=== PATIENT | male | born 1935 | race Caucasian/White ===

== ENCOUNTER 2017-11-16 08:17 | Inpatient (IN) | payer MEDICARE ==
[~2017-11-16] VITALS: Ht 167.6 cm; Wt 81.6 kg
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
[2017-11-16] MEDS ORDERED: FENTANYL PF 100MCG/2ML AMPUL IV ONE (08:30)
[2017-11-16] MEDS ORDERED: FENTANYL PF 100MCG/2ML AMPUL ONE (08:34)
--- NOTE | 2017-11-16 08:40 | NUR ---
NEW IV STARTED ON RAC, 20 G. BLOOD DRAWN AND SENT TO LAB.
--- NOTE | 2017-11-16 08:45 | NUR ---
PATIENT MEDICATED PER MD ORDERS.
[2017-11-16 08:48] LABS: BASOPHILS % (AUTO) 0.7 % (0.0-2.0); EOSINOPHILS # (AUTO) 0.3 /CMM (0.0-0.7); HEMATOCRIT 34 % (39-51); HEMOGLOBIN 11.9 g/dL (13.5-17.5); LYMPHOCYTES # (AUTO) 1.5 /CMM (0.8-4.8); LYMPHOCYTES % (AUTO) 35.1 % (20.0-44.0); MEAN CORPUSCULAR HEMOGLOBIN 33 PG (26.0-33.0); MEAN CORPUSCULAR HGB CONC 35 g/dl (31.0-36.0); MEAN CORPUSCULAR VOLUME 94 fL (80-96); MONOCYTES # (AUTO) 0.4 /CMM (0.1-1.30); MONOCYTES % (AUTO) 9.6 % (2.0-12.0); NEUTROPHILS % (AUTO) 47.6 % (43.0-81.0); PLATELET COUNT (AUTO) 166 /CMM (150-450); RDW COEFFICIENT OF VARIATION 13.8 (11.5-15.0); RED BLOOD CELL COUNT(AUTO) 3.61 MIL/uL (4.5-6.0); WHITE BLOOD COUNT (AUTO) 4.3 K/uL (4.3-11.0)
[2017-11-16 09:04] LABS: ALANINE AMINOTRANSFERASE 22 U/L (12-78); ALBUMIN 3.6 g/dL (3.4-5.0); ALKALINE PHOSPHATASE 61 U/L (46-116); ASPARTATE AMINOTRANSFERASE 18 U/L (15-37); BILIRUBIN,DIRECT 0.1 mg/dL (0.0-0.2); BILIRUBIN,TOTAL 0.6 mg/dL (0.2-1.0); CALCIUM, SERUM 9.1 mg/dL (8.5-10.1); CARBON DIOXIDE 27 mmol/L (21-32); CHLORIDE 106 mmol/L (98-107); CREATININE 1.6 mg/dL (0.6-1.3); GLUCOSE 119 mg/dL (74-106); POTASSIUM 3.7 mmol/L (3.5-5.1); SODIUM SERUM 141 mmol/L (136-145); UREA NITROGEN, BLOOD 24 mg/dL (7-18)
[2017-11-16 09:10] LABS: INR 0.97 (0.87-1.13); PROTHROMBIN TIME 10.1 SECS (9.5-12.7)
--- NOTE | 2017-11-16 09:25 | NUR ---
DR CAESAR KRAUS SUPERVISOR DRYING AND WINDING [phone]
[2017-11-16] MEDS ORDERED: LOSA1TAB39 PO (09:55)
[2017-11-16] MEDS ORDERED: AMLO5TAB2 PO (09:55)
--- NOTE | 2017-11-16 11:05 | NUR ---
ORTHO SURGEON AT BEDSIDE FOR EVAL.
--- NOTE | 2017-11-16 11:40 | NUR ---
REPORT GIVEN TO TERA MUNIZ FOR SHERRY UPON ADMISSION.
--- NOTE | 2017-11-16 11:58 | NUR ---
PATIENT TRANSPORTED TO [facility] VIA STRETCHER WITH EMT AND RN FOR ADMISSION. RN, TERA TO PROVIDE SHERRY.
[2017-11-16] MEDS ORDERED: HYDROCODONE/APAP 5/325MG 1 EACH TABLET PO PRN (12:00)
[2017-11-16] MEDS ORDERED: Z GUARD REMEDY 2 OZ OINT TP PRN (12:00)
[2017-11-16] MEDS ORDERED: MAG HYDROX/AL HYDROX/SIMETH 30 ML UDC PO PRN (12:00)
[2017-11-16] MEDS ORDERED: ACETAMINOPHEN 325 MG TABLET PO PRN (12:00)
[2017-11-16] MEDS ORDERED: MAGNESIUM HYDROXIDE 30 ML UDC PO PRN (12:00)
[2017-11-16] MEDS ORDERED: ONDANSETRON HCL/PF 4 MG/2 ML VIAL IVP PRN (12:00)
[2017-11-16] MEDS ORDERED: IV NS 0.9% 1,000 ML IV PRN (12:00)
[2017-11-16] MEDS ORDERED: ZOLPIDEM TARTRATE 5 MG TABLET PO PRN (12:00)
--- NOTE | 2017-11-16 12:15 | NUR ---
RECEIVED PT FROM ER. NO SOB OR DISTRESS. PATIENT REPORTS TOLERABLE PAIN WHEN HE ISN'T MOVING. PT MOVED TO [employer]OF[employer] AIR MATTRESS AND PLACED IN A COMFORTABLE POSITION. PATIENT ORIENTED TO ROOM AND CALL LIGHT. VITALS CHECKED AND RECORDED. PICTURES OF SKIN NOT NEED THE SKIN IS INTACT. HISTORY OBTAINED FROM PT FOR ADMISSION. BED IN A LOW POSITION, CALL LIGHT WITHIN PATIENT REACH, FAMILY IS AT THE BEDSIDE. WILL CONTINUE TO MONITOR.
[2017-11-16] MEDS ORDERED: MORPHINE SULFATE INJ 4 MG/ML DISP.SYRIN IV PRN (12:30)
--- NOTE | 2017-11-16 14:49 | NUR ---
ATTEMPTED TO HELP PT CHANGE POSITION. PT IS REFUSING, STATES "IM OK RIGHT NOW." EXPLAINED TO THE PATIENT THAT FREQUENT TURNING AND REPOSITIONING IS IMPORTANT TO PREVENT BED SORES. PT STATES "I CAN MOVE MYSELF AROUND." AND LIFTED AND MOVED HIS BOTTOM SIDE TO SIDE. CONTINUED TO EXPLAIN TO THE PATIENT THAT TURNING FREQUENTLY NEEDED TO BE DONE, BUT PT STATES HE WILL TAKE CARE OF HIMSELF.
--- NOTE | 2017-11-16 19:34 | NUR ---
PT REFUSED HELP WITH TURNING THROUGHOUT THE SHIFT. NO SOB OR DISTRESS NOTED AT THIS TIME. PATIENT REPORTS TOLERABLE PAIN. BED IN A LOW POSITION, FAMILY IS AT THE BEDSIDE. ENDORSED TO CRISTY GUTIERREZ FOR SHERRY.
--- NOTE | 2017-11-16 19:45 | NUR ---
MSRN FULLY AWAKE, COMPLETE BEDREST. OFFERED PAIN MED, NOT AT THIS TIME PER MD. WILL CALL IF NEEDED. REMINDED NOTHING BY MOUTH POST MIDNIGHT, WELL UNDERSTOOD.
[2017-11-16 20:11] VITALS: BP 122/72
[2017-11-17] VITALS (8 sets, daily range): BP systolic 103–150; BP diastolic 53–88
--- NOTE | 2017-11-17 05:32 | NUR ---
MSRN SLEEPING, NO NEEDS MADE. KEPT NPO FOR SURGERY TODAY AT 1:[address] GUTIÉRREZ.
--- NOTE | 2017-11-17 07:09 | NUR ---
MSRN REMAINS UNCHANGED
[2017-11-17 07:48] LABS: BASOPHILS % (AUTO) 0.2 % (0.0-2.0); EOSINOPHILS # (AUTO) 0.1 /CMM (0.0-0.7); EOSINOPHILS % (AUTO) 0.8 % (0.0-6.0); HEMATOCRIT 30 % (39-51); HEMOGLOBIN 10.3 g/dL (13.5-17.5); LYMPHOCYTES % (AUTO) 13.2 % (20.0-44.0); MEAN CORPUSCULAR HEMOGLOBIN 33 PG (26.0-33.0); MEAN CORPUSCULAR HGB CONC 35 g/dl (31.0-36.0); MEAN CORPUSCULAR VOLUME 96 fL (80-96); MONOCYTES # (AUTO) 0.6 /CMM (0.1-1.30); MONOCYTES % (AUTO) 7.5 % (2.0-12.0); NEUTROPHILS # (AUTO) 5.9 /CMM (1.8-8.9); NEUTROPHILS % (AUTO) 78.3 % (43.0-81.0); PLATELET COUNT (AUTO) 162 /CMM (150-450); RDW COEFFICIENT OF VARIATION 13.9 (11.5-15.0); RED BLOOD CELL COUNT(AUTO) 3.11 MIL/uL (4.5-6.0); WHITE BLOOD COUNT (AUTO) 7.5 K/uL (4.3-11.0)
[2017-11-17 08:11] LABS: CHOLESTEROL 146 mg/dL (<200); HDL CHOLESTEROL 67 mg/dL (40-60); LDL 79 mg/dL (0-99); TRIGLYCERIDES 53 mg/dL (30-150)
[2017-11-17 08:22] LABS: CALCIUM, SERUM 8.8 mg/dL (8.5-10.1); CARBON DIOXIDE 27 mmol/L (21-32); CHLORIDE 106 mmol/L (98-107); CREATININE 1.3 mg/dL (0.6-1.3); GLUCOSE 122 mg/dL (74-106); MAGNESIUM 1.6 mg/dL (1.8-2.4); PHOSPHORUS 2.9 mg/dL (2.5-4.9); POTASSIUM 3.3 mmol/L (3.5-5.1); SODIUM SERUM 142 mmol/L (136-145); UREA NITROGEN, BLOOD 22 mg/dL (7-18)
[2017-11-17] MEDS ORDERED: AMLODIPINE BESYLATE 5 MG TABLET PO SCH (09:00)
[2017-11-17] MEDS ORDERED: Medication Not On Formulary EA (Losartan/Hydrochlorothiazide (Losartan-Hctz 100-25 Mg Ta PO SCH (09:00)
[2017-11-17] MEDS: LOSARTAN/HCTZ 50-12.5MG/ 1 EA TABLET PO SCH (09:04)
[2017-11-17] MEDS: AMLODIPINE BESYLATE 5 MG TABLET PO SCH (09:04)
[2017-11-17] MEDS: Magnesium 1GM/D5W 100ML PREMIX 100 ML IV SCH ×2 (09:10→10:23)
[2017-11-17] MEDS: Potassium Chloride 40 MEQ in IV NS 0.9% 1,000 ML IV PRN ×2 (10:24→20:18)
[2017-11-17] MEDS ORDERED: FENTANYL PF 100MCG/2ML AMPUL ONE ×2 (13:00→16:21)
[2017-11-17] MEDS ORDERED: MIDAZOLAM HCL 2 MG/2ML VIAL ONE (13:00)
--- NOTE | 2017-11-17 13:00 | NUR ---
RN NOTES PATIENT BROUGHT TO OR FOR SURGERY, PATIENT IS IN NO DISTRESS AT THIS TIME.
[2017-11-17] MEDS ORDERED: ROCURONIUM BROMIDE 50 MG/5 ML ONE (13:14)
[2017-11-17] MEDS ORDERED: BUPIVACAINE 0.5 % PF 150 MG/30 ML VIAL ONE (13:40)
[2017-11-17] MEDS ORDERED: BACITRACIN 50000 UNITS/VIAL ONE (13:40)
--- NOTE | 2017-11-17 17:00 | NUR ---
RN NOTES PATIENT CAME BACK FROM OR. ALERT AND ORIENTED X3-4, NO DISTRESS NOTED, BREATHING EVEN AND UNLABORED, VS STABLE. RECEIVED POST OP ORDERS FROM DR. BENITEZ. ORDERS NOTED AND CARRIED OUT. PATIENT DENIES PAIN AT THIS TIME, KEPT PATIENT COMFORTABLE, CALL LIGHT WITHINR EACH, WILL CONTINUE TO MONITOR.
[2017-11-17] MEDS ORDERED: oxyCODONE IR immediate release 5 MG PO PRN (17:30)
[2017-11-17] MEDS ORDERED: MORPHINE SULFATE INJ 4 MG/ML DISP.SYRIN IV PRN ×2 (17:30→19:00)
[2017-11-17] MEDS ORDERED: ACETAMINOPHEN 325 MG TABLET PO PRN (17:30)
[2017-11-17] MEDS ORDERED: TRAMADOL HCL 50 MG TABLET PO PRN (17:30)
--- NOTE | 2017-11-17 19:00 | NUR ---
RN NOTES PATIENT IS NO DISTRESS, IVF INFUSING AND TOLERATING WELL. BREATHING EVEN AND UNLABORED, DENIES PAIN AT THIS TIME. NEEDS ATTENDED AND MET, BLE ELEVATED, ICE PACK TO LEFT THIGH. KEPT PATIENT COMFORTABLE. CALL LIGHT WITHIN REACH, ENDORSED TO OPERATOR RECEPTIONIST FOR SHERRY.
--- NOTE | 2017-11-17 19:30 | NUR ---
MS RN NOTE: PATIENT RESTING IN BED, NO ACUTE DISTRESS NOTED. BREATHING EVEN AND UNLABORED, NO SOB NOTED. IV TO RAC IN PLACE, INFUSING NS WITH 40 MEQ KCL AT 125 ML/HR. DRESSING TO LEFT HIP IN PLACE, NO BLEEDING NOTED. BED LOCKED AND IN LOWEST POSITION, CALL LIGHT IN REACH. WILL CONTINUE TO MONITOR.
[2017-11-17] MEDS: ACETAMINOPHEN 325 MG TABLET PO SCH (20:00)
[2017-11-17] MEDS: CEFAZOLIN SODIUM 2 GM in IV SODIUM CHLORIDE 0.9% 50 ML IV SCH (21:02)
--- NOTE | 2017-11-17 22:00 | NUR ---
MS RN NOTE: PATIENT DENIES PAIN AT THIS TIME, NON ADMINISTERED TYLENOL ORDERED. WILL CONTINUE TO MONITOR.
--- NOTE | 2017-11-18 00:30 | NUR ---
MS RN NOTE: PATIENT MOVED TO ROOM 205-2. ALL BELONGINGS MOVED WITH PATIENT. BED LOCKED AND IN LOWEST POSITION, CALL LIGHT IN REACH. WILL CONTINUE TO MONITOR.
[2017-11-18] MEDS: ACETAMINOPHEN 325 MG TABLET PO SCH ×5 (01:30→23:37)
--- NOTE | 2017-11-18 02:30 | NUR ---
MS RN NOTE: PATIENT DENIES PAIN AT THIS TIME, NON ADMINISTERED TYLENOL ORDERED. WILL CONTINUE TO MONITOR.
[2017-11-18] MEDS: CEFAZOLIN SODIUM 2 GM in IV SODIUM CHLORIDE 0.9% 50 ML IV SCH ×2 (04:51→12:58)
[2017-11-18] MEDS: Potassium Chloride 40 MEQ in IV NS 0.9% 1,000 ML IV PRN ×2 (04:51→21:18)
--- NOTE | 2017-11-18 06:30 | NUR ---
MS RN NOTE: PATIENT RESTING IN BED, NO ACUTE DISTRESS NOTED. BREATHING EVEN AND UNLABORED, NO SOB NOTED. IV TO RAC IN PLACE, INFUSING NS WITH 40 MEQ KCL AT 125 ML/HR. DRESSING TO LEFT HIP IN PLACE, NO BLEEDING NOTED. BED LOCKED AND IN LOWEST POSITION, CALL LIGHT IN REACH. WILL ENDORSE TO DAY NURSE TO CONTINUE WITH PLAN OF CARE.
--- NOTE | 2017-11-18 07:30 | NUR ---
RN MS INITIAL NOTES RECEIVED PT LAYING IN BED WITH HOB ELEVATED. A/O X4, RESPIRATIONS ARE EVEN AND UNLABORED, NOT IN ANY ACUTE DISTRESS NOTED. DENIES ANY PAIN AT THIS TIME. IV TO RAC INTACT, PATENT. DRESSING KEPT CLEAN AND DRY. S/P LEFT HIP RODDING, CAPILLARY REFILL <3 SECONDS AND ABLE TO WIGGLE TOES. WILL CONTINUE TO MONITOR THROUGHOUT SHIFT.
[2017-11-18 08:00] VITALS: BP 117/73
[2017-11-18 08:51] LABS: BASOPHILS % (AUTO) 0.2 % (0.0-2.0); EOSINOPHILS % (AUTO) 0.1 % (0.0-6.0); HEMATOCRIT 23 % (39-51); LYMPHOCYTES # (AUTO) 0.8 /CMM (0.8-4.8); LYMPHOCYTES % (AUTO) 10.6 % (20.0-44.0); MEAN CORPUSCULAR HEMOGLOBIN 33 PG (26.0-33.0); MEAN CORPUSCULAR HGB CONC 35 g/dl (31.0-36.0); MEAN CORPUSCULAR VOLUME 96 fL (80-96); MONOCYTES # (AUTO) 0.7 /CMM (0.1-1.30); MONOCYTES % (AUTO) 8.8 % (2.0-12.0); NEUTROPHILS # (AUTO) 6.3 /CMM (1.8-8.9); NEUTROPHILS % (AUTO) 80.3 % (43.0-81.0); PLATELET COUNT (AUTO) 133 /CMM (150-450); RED BLOOD CELL COUNT(AUTO) 2.42 MIL/uL (4.5-6.0); WHITE BLOOD COUNT (AUTO) 7.9 K/uL (4.3-11.0)
[2017-11-18 09:08] LABS: ALANINE AMINOTRANSFERASE 16 U/L (12-78); ALBUMIN 2.8 g/dL (3.4-5.0); ALKALINE PHOSPHATASE 42 U/L (46-116); ASPARTATE AMINOTRANSFERASE 24 U/L (15-37); BILIRUBIN,TOTAL 0.4 mg/dL (0.2-1.0); CALCIUM, SERUM 7.9 mg/dL (8.5-10.1); CARBON DIOXIDE 26 mmol/L (21-32); CHLORIDE 111 mmol/L (98-107); CREATININE 1.4 mg/dL (0.6-1.3); GLUCOSE 128 mg/dL (74-106); MAGNESIUM 1.7 mg/dL (1.8-2.4); PHOSPHORUS 2.8 mg/dL (2.5-4.9); SODIUM SERUM 145 mmol/L (136-145); TOTAL PROTEIN, SERUM 5.7 g/dL (6.4-8.2); UREA NITROGEN, BLOOD 22 mg/dL (7-18)
[2017-11-18] MEDS: AMLODIPINE BESYLATE 5 MG TABLET PO SCH (09:39)
[2017-11-18] MEDS: LOSARTAN/HCTZ 50-12.5MG/ 1 EA TABLET PO SCH (09:39)
[2017-11-18] MEDS: Magnesium 1GM/D5W 100ML PREMIX 100 ML IV SCH ×2 (11:54→13:44)
[2017-11-18 11:57] LABS: IRON, SERUM 14 ug/dl (50-175); TOTAL IRON BINDING CAPACITY 208 ug/dl (250-450)
[2017-11-18 12:19] LABS: FERRITIN 75 ng/mL (8-388)
[2017-11-18 15:58] VITALS: BP 127/78
[2017-11-18] MEDS ORDERED: HYDROCODONE/APAP 10/325MG 1 EA TABLET PO PRN (16:00)
[2017-11-18] MEDS ORDERED: HYDROCODONE/APAP 5/325MG 1 EACH TABLET PO SCH (16:12)
[2017-11-18] MEDS: HYDROCODONE/APAP 5/325MG 1 EACH TABLET PO SCH ×2 (17:00→21:00)
[2017-11-18] MEDS: RIVAROXABAN 10 MG TABLET PO SCH (18:05)
--- NOTE | 2017-11-18 18:06 | NUR ---
RN NOTES PT DENIES ANY PAIN AT THIS TIME AND THROUGHOUT SHIFT. PT CURRENTLY HAS SCHEDULED TYLENOL AND NORCO. PT REFUSES TO TAKE THEM. WILL CONTINUE TO MONITOR.
--- NOTE | 2017-11-18 18:07 | NUR ---
RN NOTES CALLED PHARMACY X2 RE: FERRELICIT ORDER. PER PHARMACY, THEY HAVE BEEN BACKED UP. WILL CONTINUE TO DOCUMENT.
[2017-11-18] MEDS: SOD FERRIC GLUC 125 MG in IV NS 0.9% 100 ML IV SCH (18:33)
--- NOTE | 2017-11-18 18:53 | NUR ---
RN CLOSING NOTES ALL DUE MEDS GIVEN, NEEDS MET AND RENDERED. A/O X4, RESPIRATIONS ARE EVEN AND UNLABORED, NOT IN ANY ACUTE DISTRESS NOTED. PT CONTINUES TO DENY ANY PAIN. PT IS MADE AWARE THAT HE HAS PAIN MEDICATIONS ORDERED, STILL REFUSES. PT ABLE TO PERFORM AROM TO BLE AND BUE. PT IS MOTIVATED TO CONTINUE PHYSICAL THERAPY. WILL ENDORSE TO NEXT SHIFT FOR CONTINUITY OF CARE.
--- NOTE | 2017-11-18 19:30 | NUR ---
RN NOTE; PT IN BED AWAKE AND ALERT. BREATHING EVENLY. NO SOB. NAD. SKIN WARM AND DRY, NO C/O PAIN OR DISCOMFORT, SX DRESSING ON L HIP CDI. NEEDS ATTENDED. BED LOW LOCKED. CALL LIGHT WITHIN REACH. WILL CONT TO MONITOR ,
[2017-11-18 20:00] VITALS: BP 133/71
[2017-11-18 20:40] VITALS: BP 133/71
--- NOTE | 2017-11-18 20:45 | NUR ---
PT W/ AN ORDER FOR [address]ION FROM [address] BENITEZ. UNABLE TO PAGE OR GET A HOLD A HOLD OF DR. BENITEZ. CALLED [employer] AND CLARIFIED THE ORDER FOR ONE UNIT. AND THE RECENT H/H LEVEL. PER COURFabricio TO HOLD THE TRANSFUSION FOR NOW AND CHECK THE CBC IN AM . PT IN STABLE CONDITION AT THIS TIME W/ NO C/O SOB . SKIN COLOR WNL. Fe IV GIVEN. WILL CONT TO MONITOR,
--- NOTE | 2017-11-18 21:18 | NUR ---
PT REFUSED NORCO AT THIS TIME. STATED HE DOES NOT NEED IT AND IS PAIN FREE. WILL CONT TO MONITOR,
--- NOTE | 2017-11-18 23:39 | NUR ---
PT REFUSED TYLENOL AT THIS TIME. STATED HE DOES NOT NEED IT AND IS PAIN FREE. WILL CONT TO MONITOR,
[2017-11-19] VITALS (9 sets, daily range): BP systolic 104–145; BP diastolic 59–76
[2017-11-19] MEDS: HYDROCODONE/APAP 5/325MG 1 EACH TABLET PO SCH ×4 (01:00→13:00)
--- NOTE | 2017-11-19 01:01 | NUR ---
PT REFUSED NORCO AT THIS TIME. STATED HE DOES NOT NEED IT AND IS PAIN FREE. WILL CONT TO MONITOR,
[2017-11-19] MEDS: ACETAMINOPHEN 325 MG TABLET PO SCH ×5 (06:00→23:00)
--- NOTE | 2017-11-19 06:34 | NUR ---
PT IN BED SLEEPING. AROUSES EASILY. NO C/O PAIN OR DISCOMFORT AT THIS TIME. PT REFUSED ALL HIS SCHEDULED NORCO AND TYLENOL DURING THE NIGHT. NEEDS ATTENDED . BED LOW LOCKED .CALL LIGHT WITHIN REACH,. WILL CONT TO MONITOR AND WILL ENDORSE TO AM SHIFT FOR SHERRY.
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
[2017-11-19 08:09] LABS: ALANINE AMINOTRANSFERASE 12 U/L (12-78); ALBUMIN 2.6 g/dL (3.4-5.0); ALKALINE PHOSPHATASE 44 U/L (46-116); ASPARTATE AMINOTRANSFERASE 28 U/L (15-37); BILIRUBIN,TOTAL 0.5 mg/dL (0.2-1.0); CALCIUM, SERUM 8.3 mg/dL (8.5-10.1); CARBON DIOXIDE 28 mmol/L (21-32); CHLORIDE 111 mmol/L (98-107); CREATININE 1.3 mg/dL (0.6-1.3); GLUCOSE 119 mg/dL (74-106); PHOSPHORUS 2.3 mg/dL (2.5-4.9); POTASSIUM 4.2 mmol/L (3.5-5.1); SODIUM SERUM 146 mmol/L (136-145); TOTAL PROTEIN, SERUM 5.9 g/dL (6.4-8.2); UREA NITROGEN, BLOOD 19 mg/dL (7-18)
[2017-11-19 08:15] LABS: BASOPHILS % (AUTO) 0.1 % (0.0-2.0); EOSINOPHILS % (AUTO) 0.4 % (0.0-6.0); HEMATOCRIT 22 % (39-51); HEMOGLOBIN 7.7 g/dL (13.5-17.5); LYMPHOCYTES # (AUTO) 1.1 /CMM (0.8-4.8); LYMPHOCYTES % (AUTO) 13.3 % (20.0-44.0); MEAN CORPUSCULAR HEMOGLOBIN 33 PG (26.0-33.0); MEAN CORPUSCULAR HGB CONC 35 g/dl (31.0-36.0); MEAN CORPUSCULAR VOLUME 95 fL (80-96); MONOCYTES # (AUTO) 0.7 /CMM (0.1-1.30); MONOCYTES % (AUTO) 9.1 % (2.0-12.0); NEUTROPHILS # (AUTO) 6.3 /CMM (1.8-8.9); NEUTROPHILS % (AUTO) 77.1 % (43.0-81.0); PLATELET COUNT (AUTO) 131 /CMM (150-450); RDW COEFFICIENT OF VARIATION 14.4 (11.5-15.0); WHITE BLOOD COUNT (AUTO) 8.2 K/uL (4.3-11.0)
[2017-11-19] MEDS: LOSARTAN/HCTZ 50-12.5MG/ 1 EA TABLET PO SCH (09:21)
[2017-11-19] MEDS: AMLODIPINE BESYLATE 5 MG TABLET PO SCH (09:21)
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
[2017-11-19] MEDS ORDERED: POTASSIUM PHOSPHATE MM 15 MMOL in IV D5W 250 ML IV SCH (10:00)
--- NOTE | 2017-11-19 11:54 | NUR ---
RN NOTES CLARIFIED POTASSIUM ORDER W/ DR. ISRAEL AND "OK TO GIVE." WILL ADMINISTER.
[2017-11-19] MEDS: POTASSIUM PHOSPHATE MM 7.5 MMOL in IV D5W 100 ML IV SCH ×2 (13:24→20:02)
[2017-11-19] MEDS ORDERED: oxyCODONE IR immediate release 5 MG PO PRN (17:00)
[2017-11-19] MEDS ORDERED: TRAMADOL HCL 50 MG TABLET PO PRN (17:00)
[2017-11-19] MEDS ORDERED: MORPHINE SULFATE INJ 4 MG/ML DISP.SYRIN IV PRN (17:00)
[2017-11-19] MEDS: RIVAROXABAN 10 MG TABLET PO SCH (17:40)
[2017-11-19] MEDS: SOD FERRIC GLUC 125 MG in IV NS 0.9% 100 ML IV SCH (18:24)
--- NOTE | 2017-11-19 19:33 | NUR ---
RN CLOSING NOTES ALL DUE MEDS GIVEN, NEEDS MET AND RENDERED. A/O X4, RESPIRATIONS ARE EVEN AND UNLABORED, NOT IN ANY ACUTE DISTRESS NOTED. DENIES ANY PAIN THROUGHOUT SHIFT. OFFERED PT PAIN MEDICATION STILL REFUSED. BLOOD TRANSFUSION 1 UNIT TRANSFUSED WITH NO ASE NOTED. IV TO RIGHT HAND AND LEFT HAND INTACT, PATENT. DRESSING KEPT CLEAN AND DRY. rEMINDED PT TO USE CALL LIGHT WHEN ASSISTANCE IS NEEDED, CALL LIGHT IS LEFT WITHIN REACH. EDNROSED TO NEXT SHIFT.
[2017-11-19] MEDS: CEFAZOLIN 2 GM in IV D5W 50 ML IV SCH (20:03)
[2017-11-20] MEDS: CEFAZOLIN 2 GM in IV D5W 50 ML IV SCH ×2 (04:36→14:05)
[2017-11-20] MEDS: ACETAMINOPHEN 325 MG TABLET PO SCH ×4 (04:41→12:43)
--- NOTE | 2017-11-20 06:30 | NUR ---
MS RN NOTES AWAKE & RESPONSIVE. NOT IN ANY DISTRESS. NO SOB NOTED. DENIES ANY PAIN OR DISCOMFORT AT THIS TIME. WITH IV-HL PATENT & INTACT. MONITORED ACCORDINGLY. DRESSING C/D/I. CALL LIGHT WITHIN REACH. BED IN LOWEST POSITION. SR UP X 2 FOR SAFETY WITH BED ALARM ON. WILL ENDORSE TO NEXT SHIFT.
--- NOTE | 2017-11-20 07:30 | NUR ---
MS/RN OPENING NOTE RECEIVED PATIENT IN BED AWAKE. ALERT AND ORIENTED X4. RESPIRATION REGULAR AND UNLABORED. DENIES SOB, DENIES PAIN AT THIS TIME. THE PATIENT IN NO APPARENT DISTRESS. LEFT HAND G22 AND RIGHT HAND G20 PATENT AND SALINE LOCKED. BED LOW AND LOCKED. SIDE RAIL UP X2. CALL LIGHT WITHIN REACH. ENCOURAGED TO PRESS THE CALL LIGHT FOR ASSISTANCE. WILL CONTINUE TO MONITOR.
[2017-11-20 07:36] LABS: BASOPHILS % (AUTO) 0.5 % (0.0-2.0); EOSINOPHILS # (AUTO) 0.1 /CMM (0.0-0.7); EOSINOPHILS % (AUTO) 1.7 % (0.0-6.0); HEMATOCRIT 23 % (39-51); HEMOGLOBIN 7.9 g/dL (13.5-17.5); LYMPHOCYTES # (AUTO) 1.1 /CMM (0.8-4.8); LYMPHOCYTES % (AUTO) 14.2 % (20.0-44.0); MEAN CORPUSCULAR HEMOGLOBIN 32 PG (26.0-33.0); MEAN CORPUSCULAR HGB CONC 35 g/dl (31.0-36.0); MEAN CORPUSCULAR VOLUME 92 fL (80-96); MONOCYTES # (AUTO) 0.7 /CMM (0.1-1.30); MONOCYTES % (AUTO) 8.9 % (2.0-12.0); NEUTROPHILS # (AUTO) 6.1 /CMM (1.8-8.9); NEUTROPHILS % (AUTO) 74.7 % (43.0-81.0); PLATELET COUNT (AUTO) 151 /CMM (150-450); RDW COEFFICIENT OF VARIATION 14.4 (11.5-15.0); RED BLOOD CELL COUNT(AUTO) 2.49 MIL/uL (4.5-6.0)
[2017-11-20 08:00] VITALS: BP 129/72
[2017-11-20 08:02] LABS: CALCIUM, SERUM 8.4 mg/dL (8.5-10.1); CARBON DIOXIDE 27 mmol/L (21-32); CHLORIDE 110 mmol/L (98-107); CREATININE 1.3 mg/dL (0.6-1.3); GLUCOSE 112 mg/dL (74-106); MAGNESIUM 1.8 mg/dL (1.8-2.4); PHOSPHORUS 2.5 mg/dL (2.5-4.9); POTASSIUM 4.2 mmol/L (3.5-5.1); SODIUM SERUM 145 mmol/L (136-145); UREA NITROGEN, BLOOD 20 mg/dL (7-18)
[2017-11-20] MEDS: LOSARTAN/HCTZ 50-12.5MG/ 1 EA TABLET PO SCH (08:18)
[2017-11-20] MEDS: AMLODIPINE BESYLATE 5 MG TABLET PO SCH (08:18)
[2017-11-20] MEDS ORDERED: SENN-22 PO (11:43)
[2017-11-20] MEDS ORDERED: FERR-58 PO (11:43)
[2017-11-20] MEDS ORDERED: RIVA10TA PO (11:43)
[2017-11-20] MEDS ORDERED: POLY17PO4 PO (11:43)
[2017-11-20] MEDS ORDERED: SENNOSIDES/DOCUSATE SODIUM 1 TAB TABLET PO SCH (12:00)
[2017-11-20] MEDS ORDERED: BISACODYL (5 MG) 5 MG TABLET.DR PO PRN (12:00)
[2017-11-20] MEDS ORDERED: POLYETHYLENE GLYCOL 3350 17 GM POWD.PACK PO SCH (12:00)
[2017-11-20] MEDS ORDERED: BISACODYL SUPP (10 MG) 10 MG/SUPP.RECT SUPP.RECT RC PRN (12:00)
[2017-11-20] MEDS: SOD FERRIC GLUC 125 MG in IV NS 0.9% 100 ML IV SCH (14:00)
[2017-11-20 16:00] VITALS: BP 112/68
--- NOTE | 2017-11-20 17:30 | NUR ---
MS/RN NOTE PATIENT WAS PICKED UP VIA [facility] GOING TO [facility]. PATIENT LEFT IN STABLE CONDITION.
== END 2017-11-20 18:01 | DRG 480 ==
LOC: ER 08:19 → MEDSG2 12:03
PROVIDERS: ADMIT Family Medicine; ATTEND Family Medicine
PROC: 0QS706Z Reposition Left Upper Femur with Intramedullary Internal Fixation Device, Open Approach (ICD-10-PCS; principal; 2017-11-17 13:30)
PROC: 30233N1 Transfusion of Nonautologous Red Blood Cells into Peripheral Vein, Percutaneous Approach (ICD-10-PCS; 2017-11-19)
DX: S72.22XA Displaced subtrochanteric fracture of left femur, initial encounter for closed fracture (principal); N17.0 Acute kidney failure with tubular necrosis; E44.0 Moderate protein-calorie malnutrition; E83.42 Hypomagnesemia; E88.09 Other disorders of plasma-protein metabolism, not elsewhere classified; N18.9 Chronic kidney disease, unspecified; I12.9 Hypertensive chronic kidney disease with stage 1 through stage 4 chronic kidney disease, or unspecified chronic kidney disease; W01.0XXA Fall on same level from slipping, tripping and stumbling without subsequent striking against object, initial encounter; Y93.55 Activity, bike riding; D63.8 Anemia in other chronic diseases classified elsewhere; E78.5 Hyperlipidemia, unspecified; K59.00 Constipation, unspecified; V19.9XXA Pedal cyclist (driver) (passenger) injured in unspecified traffic accident, initial encounter; Y92.89 Other specified places as the place of occurrence of the external cause; E87.6 Hypokalemia; R73.9 Hyperglycemia, unspecified; D50.9 Iron deficiency anemia, unspecified; Z85.89 Personal history of malignant neoplasm of other organs and systems; Z85.05 Personal history of malignant neoplasm of liver; Z85.118 Personal history of other malignant neoplasm of bronchus and lung; Z68.29 Body mass index [BMI] 29.0-29.9, adult
CPT/HCPCS: 36415; 71045-TC; 72192-TC; 73020; 73502; 73552; 80048-TC; 80053-TC; 80061-TC; 80076-TC; 82728-TC; 83540-TC; 83735-TC; 84100-TC; 85025-TC; 85730-TC; 86850-TC; 86921-TC; 87081-TC; 93307-TC; 97116-TC; 97530-TC; A4216; A4606; A6209; A6402; C1713; J0690; J2250; J2370; J2704; J2916; J3010; J3475; J3480; J3490; J7030; J7050; J7060; P9016-BL; Z7610